=== PATIENT | male | born 1990 | race Caucasian/White ===

== ENCOUNTER 2019-02-04 13:59 | Emergency (ER) | payer BC, OTHER ==
[2019-02-04] MEDS ORDERED: Dexamethasone 4 mg/ml Vial ONE (14:38)
== END 2019-02-04 15:45 | disposition home or self-care (01) ==
LOC: ERS 13:59
DX: T63.441A Toxic effect of venom of bees, accidental (unintentional), initial encounter (principal); L50.9 Urticaria, unspecified; F17.210 Nicotine dependence, cigarettes, uncomplicated
CPT/HCPCS: 96361; 96374; J1100